=== PATIENT | female | born 1995 | race Caucasian/White ===

== ENCOUNTER 2016-10-01 03:52 | Inpatient (IN) | payer OTHER ==
[~2016-10-01] VITALS: Ht 167.6 cm; Wt 82.1 kg
[2016-10-01] MEDS ORDERED: Lactated Ringer's 1,000 ML IV PRN (04:21)
[2016-10-01] MEDS ORDERED: Methylergonovine 0.2 mg/mL Inj IM PRN ×2 (04:25→11:20)
[2016-10-01] MEDS ORDERED: Oxytocin 10 Unit/mL Inj IM PRN ×2 (04:25→11:20)
[2016-10-01] MEDS ORDERED: Sodium Chloride LOK Flush 10 mL Syringe IVFLUSH PRN (04:25)
[2016-10-01] MEDS ORDERED: Oxytocin 30 Units/500 mL LR 30 UNITS in IV Premix 1 EACH IV PRN ×2 (04:25→11:20)
[2016-10-01] MEDS ORDERED: Carboprost 250 mCg/mL Inj IM PRN ×2 (04:25→11:20)
[2016-10-01] MEDS ORDERED: Ondansetron 2 mg/mL 2 mL Inj IVPUSH PRN (04:25)
[2016-10-01] MEDS ORDERED: fentaNYL-PF 50 mCg/mL 2 mL Inj IVPUSH PRN (04:25)
[2016-10-01] MEDS ORDERED: Hemorrhage Kit, Post Partum XX ONE ×2 (04:25→11:20)
[2016-10-01 05:09] LABS: Mean Corpuscular Hemoglobin 33.2 pg (27.0-35.0); Mean Corpuscular Volume 95.6 fL (81-100)
[2016-10-01] MEDS ORDERED: PREN1TAB25 PO (06:24)
--- NOTE | 2016-10-01 09:34 | PCM.HPOB ---
Subjective Date of Service: Oct 01, 2016 Referring Provider: Admitting Physician: Mirella Nevarez MD Primary Care Physician: Derrick Pete DO Attending Physician: Mirella Nevarez MD Chief Complaint S-ROM History of Present History of Present Illness 21-year-old at 40 weeks and 3 days with a GERSON of 09/28/16 confirmed by 6 week 1 day ultrasound who presents with SROM. She states she felt a gush of fluid at 4 am. She was found to be about 1-1/2 cm dilation at [facility] and with regular contractions. She was found to have clear amniotic fluid without meconium. She has had uncomplicated however she is Rh- and will require RhoGAM. She is scheduled to have an induction of labor on 10/06/16. OB History: (1) Obstetrical Complications: None Past Medical History Obstetrical History: None Gynecologic History: None Medical History: Recurrent UTIs Depression Surgical History: Done Hx Tobacco Use: No Smoking Status: Never Smoker Hx Alcohol Use: No Hx Substance Use: No Past Family History Living Arrangement: with Family Genetic Screening/Counseling Genetic Screening/Counseling: Unknown Review of Systems Constitutional: Y: Change of appitite Eyes: Denies: Blurred Vision Cardiovascular: Denies: Chest Pain Respiratory: Denies: SOB with Exertion Gastrointestinal: Denies: Epigastric pain Psychologic: Denies: Agitation Allergy Coded Allergies: No Known Allergies (Unverified , 10/01/16) Exam Constitutional: Well-developed HEENT: Atraumatic Lungs: Clear to Auscultation Heart: Exam Unremarkable Extremities: No Edema Neurological/Psychiatric: Alert, Oriented X3, Cooperative, No Acute Distress Neuro: Normal DTRs, No Clonus noted Labs/Diagnostics Maternal Blood Type: A (negative) Group B Strep Results: Negative Previous Infant with GBS: No Rubella: Immune OB Intrapartum Assessment/Plan Problems: (1) Qualifiers: Weeks of gestation: 40 weeks Qualified Code: Z3A.40 - 40 weeks gestation of Plan: Continue routine intrapartum care Induction if not progressing within 6 hours Epidural placement by anesthesia RhoGam prior to discharge Status: Acute ICD Code: Z33.1 Attending Statement I saw patient and examined her. I agree with above plan. Elissa Ham DO Oct 01, 2016 09:34 Mirella Nevarez MD Oct 03, 2016 14:48
[2016-10-01] MEDS ORDERED: Lactated Ringer's 1,000 ML IV SCH (11:20)
[2016-10-01] MEDS ORDERED: CeFAZolin 2 Gm/50 mL D5W Duplex Bag IV ONE (11:25)
--- NOTE | 2016-10-01 13:53 | OP ---
[address] [address] OPERATIVE REPORT PATIENT: CELSO STEVENSON : 1995 MR#: [id number] ADMIT: 10/01/2016 JOB ID: [id number] DELIVERY NOTE: DATE OF DELIVERY: 10/01/2016 DELIVERING PHYSICIAN: Mirella Nevarez MD INDICATIONS: This is a 21-year-old female, 1, para 1, now she is admitted this morning for rupture of membranes, for leaking of fluid and confirmed rupture of membranes. DETAILS OF DELIVERY: After admission, patient started to have irregular contraction and contractions gradually became stronger and more regular, and during her process of labor she had a category 1 tracing. She was noticed to be fully dilated around 10 o'clock, and started to have pushing sensation. The patient had good effort to push and there was normal descent of head. The infant was delivered at an EUGENIO position. There was one round nuchal cord noticed and was not released or clamped because of the quick delivery of shoulder. Then shoulder and chest delivered without difficulty. At this time, the nuchal cord reduced and the was placed on mother's chest. There was good tone of the baby and spontaneous onset of crying. Delayed cord clamp performed after the disappearing of pulsation about 1 minute after delivery. Regular cord blood collected. The placenta delivered about 25 minutes after the delivered with gentle pulling. When examining the placenta, it was noticed in the central part of the placenta, there was a piece about 3 x 5 cm roughly was missing from placenta and discussed with the patient that examination with possible manual removal of the retained partial of placenta was needed. The patient agreed with the plan, and 100 mg of fentanyl was given before the case started. The patient tolerated the procedure well and during the examination it was noticed a small piece of placenta about 4 x 5 cm retained and still attached to the uterus. With gentle , this piece was removed and the uterine cavity was re-examined and confirmed no retained products of left. Then at this time, the uterus was manual massaged and continued with Pitocin. Hemostasis confirmed. The perineum examined with no laceration. There was a 2 cm laceration on the right vaginal wall with small oozing of blood. This was repaired with two [id number] stitches. Hemostasis confirmed after the repair. Patient tolerated the procedure well. All instrument, needles, laps and gauzes counted and correct x2. EBL during the delivery was about 400 cc. Placenta sent for pathology. DATE OF SURGERY: SURGEON: PREOPERATIVE DIAGNOSIS(ES): POSTOPERATIVE DIAGNOSIS(ES):
[2016-10-01] MEDS ORDERED: Benzocaine (Dermoplast) 20% 60 Gm Spray TOPICAL PRN (15:45)
[2016-10-01] MEDS ORDERED: Witch Hazel-Glycerin Pads TOPICAL PRN (15:45)
[2016-10-01] MEDS ORDERED: LANOlin HPA 7 Gm Ointment TOPICAL PRN (15:45)
[2016-10-02 07:49] LABS: Mean Corpuscular Hemoglobin 32.9 pg (27.0-35.0); Mean Corpuscular Volume 97.7 fL (81-100)
--- NOTE | 2016-10-02 15:05 | PCM.DIMED ---
Discharge Instructions Date of Service Oct 02, 2016 Dates of Hospitalization Oct 01, 2016 at 04:07 Diet Discharge Diet: No restrictions Activity Discharge Activity: No restrictions Call your provider Call your provider for: Fever or Chills, Shortness of breath, Bleeding, Chest pain, Vomitting, Excessive diarrhea, Weakness (unilateral) Patient Instructions Follow-up with PCP in: 6 weeks Russell Rodney MD Oct 02, 2016 15:05
[2016-10-02] MEDS ORDERED: IBUP-1827 PO (15:07)
[2016-10-02] MEDS ORDERED: DOCU-41 PO (15:07)
[2016-10-02] MEDS ORDERED: HYDR-4003 PO (15:07)
[2016-10-02 15:23] VITALS: BP 129/77; PULSE 80; RESP 16
--- NOTE | 2016-10-02 16:42 | DIS ---
[address] [address] DISCHARGE SUMMARY PATIENT: CELSO STEVENSON : 1995 MR#: [id number] ADMIT: 10/01/2016 JOB ID: [id number] DIS: 10/02/2016 ADMITTING DIAGNOSIS: A 21-year-old, 1, para zero, at 40 weeks and 3 days with spontaneous rupture of membranes. DISCHARGE DIAGNOSIS: A 21-year-old, 1, para 1, status post spontaneous vaginal delivery at term. Retained placenta, manual removal. The patient is a 21-year-old, 1, para one now, who came to Labor and Delivery at 40 weeks and 3 days with spontaneous rupture of membranes. Since her admission in the morning, contractions gradually became stronger and regular. She had category 1 tracing. Patient spontaneously progressed to full dilation at 10:00 p.m. and started pushing at around the same time. She underwent spontaneous vaginal delivery, delivered a female with weight 6 pounds and 2 ounces. Apgars 9 at one minute and 9 at five minutes. ESTIMATED BLOOD LOSS: 400 mL. The placenta was delivered with missing piece of it and manual removal of placenta was done after she received fentanyl, measuring 3 x 5 cm, was removed. Placenta was sent to Pathology. A 2 cm laceration of the right labia was repaired with two xgjpsa-[id number] 3-0 Vicryl sutures. On day one, October 02, 2016, the patient was doing well, the pain was well controlled with Motrin. She did not report any excessive pelvic pain or abnormal vaginal discharge. She was afebrile and stable. The abdomen was soft and nondistended with very mild fundal tenderness. There was no vaginal bleeding. The perineum was intact. There was no abnormal vaginal. LABS ON DISCHARGE: On day one, WBC count 12.3, hemoglobin 10.2, hematocrit 30.3, platelet count 203. The patient was sent home on day one, October 02, 2016, in stable condition with all discharge criteria met. She received discharge medications includin. Ibuprofen 600 mg p.o. q.6 h. p.r.n. for pain. 2. Colace 100 mg p.o. b.i.d. 3. Vicodin 5/325 mg p.o. t.i.d. p.r.n. for pain. Followup visit in the clinic is scheduled in six weeks.
--- NOTE | 2016-10-04 16:23 | PATH ---
SURGICAL PATHOLOGY Attending Physician:Mirella Nevarez MD CASE STATUS: Signed Out PATIENT NAME: CELSO STEVENSON PID: [id number] : 1995 DATE COLLECTED:10/01/2016 21:51 SPECIMEN: Placenta CLINICAL HISTORY: RETAINED PLACENTA 1). PLACENTA FINAL DIAGNOSIS: Placenta Designated As "Retained Placenta" Delivery: - Ross placenta ( 98% intact) with separate pieces weighing 382 grams in aggregate. - Three vessel umbilical cord with no evidence of funisitis. - membranes with no evidence of chorionitis, the amniotic membrane has been stripped precluding assessment. - Villous morphology appropriate for gestational age. ICD10: O73 GROSS DESCRIPTION: The specimen is received in formalin, labeled with the patient requisition number, and consists of a placenta which includes a 98% intact placental disc with multiple pieces of placental body (382 g in aggregate, 22.5 x 18.2 x 2.0 cm), membranes and umbilical cord (length-23.5 cm, diameter-0.9 x 0.7 cm). The membranes are ruptured at the free edge of the placenta and are semitranslucent. The umbilical cord has a furcate insertion 9.4 cm from the edge of the placenta and contains 3 vessels. The surface is smooth and shiny with no evidence of meconium identified. The maternal surface is dark maroon with normal cotyledon formation. The placental body is partially torn, ragged, and dry. The remaining body is spongy with no nodules, masses, lesions, hematomas or infarcts identified. Section code: (A) edge of placenta with membranes, umbilical cord; (B-C, D-E, F-H) placenta, 5 full-thickness sections. 10/02/16 ICD-9 CODES: CPT CODES: 1: 89361 Electronically Signed Out Manish Lopez MD [facility] [address], [place] [address] Technical component performed at [facility], [address], [place], [address]
== END 2016-10-02 17:56 | disposition home or self-care (01) | DRG 775 ==
LOC: FBCO 03:52 → FBC 04:07
PROVIDERS: ADMIT Obstetrics & Gynecology; ATTEND Obstetrics & Gynecology
PROC: 10E0XZZ Delivery of Products of Conception, External Approach (ICD-10-PCS; principal; 2016-10-01)
PROC: 0HQ9XZZ Repair Perineum Skin, External Approach (ICD-10-PCS; 2016-10-01)
DX: O70.0 First degree perineal laceration during delivery (principal); O69.81X0 Labor and delivery complicated by cord around neck, without compression, not applicable or unspecified; Z3A.40 40 weeks gestation of pregnancy; Z37.0 Single live birth

== ENCOUNTER 2016-10-18 17:28 | Emergency (ER) | payer OTHER ==
[~2016-10-18] VITALS: Ht 167.6 cm; Wt 67.0 kg
[~2016-10-18 17:28] MED LIST: DOCU-41 PO; HYDR-4003 PO; IBUP-1827 PO; PREN1TAB25 PO
[2016-10-18 17:45] VITALS: BP 102/70; PULSE 82; RESP 14; O2SAT 97
[2016-10-18 18:22] LABS: BASOPHILS % (AUTO) 0.4 % (0-3); EOSINOPHILS % (AUTO) 2.2 % (0-5); MONOCYTES % (AUTO) 9.5 % (4-12); Mean Corpuscular Hemoglobin 32.5 pg (27.0-35.0); Mean Corpuscular Volume 95.9 fL (81-100); NEUTROPHILS % (AUTO) 60.8 % (40-74); Platelet Count 261 bil/L (150-400)
--- NOTE | 2016-10-18 18:29 | ED.REPORT ---
HPI- Female Date of Service Oct 18, 2016 ED Provider: Jose DavidEd Patient is a 21 year old female status two weeks post who presents to the ED complaining of intermittent vaginal bleeding onset 1630 today. Associated symptoms include lightheadedness. Patient also complains of a headache since her delivery and decreased appetite. She denies nausea, abdominal pain, pelvic pain or foul vaginal discharge. The patient reports that it started with intermittent pink vaginal bleeding until 1630 when she passed two large clots. She states that during her child she had some retained placenta that was removed after delivery. Nursing Notes Stated Complaint: BLEEDING Chief Complaint: Female Abdominal Pain Nursing Notes Reviewed: Yes Allergies: Coded Allergies: No Known Allergies (Unverified , 10/18/16) Scheduled Docusate Sodium (Colace) 100 Mg Capsule 100 MG PO BID Vit#96/Ferrous Fum/FA ( Tablet) 1 Each Tablet 1 EACH PO DAILY Scheduled PRN Hydrocodone-Acetaminophen 5-325 mg (Hydrocodone-Acetaminophen 5-325 mg) 1 Each Tablet 1 TABLET PO QID PRN PRN For Pain Ibuprofen (Ibuprofen) 600 Mg Tablet 600 MG PO Q6H PRN PRN For Mild Pain General Time Seen by MD: 18:29 Chief Complaint Vaginal bleeding... Hx Obtained From: Patient Arrived By: Walk-in Sudden in Onset?: Yes Onset Occurred: 1 - 4 hours ago Symptom Duration: Since onset Severity: Current: No pain currently Recent Healthcare: Recent hospitalization Similar Sx Previous: No Past Medical History Past Medical History 2 weeks post Smoking History Never Smoker Ambulatory Status Independent Review of Systems Review of Systems Note: +decreased appetite Constitutional: Denies: Chills, Fever GI: Denies: Abdominal pain, Nausea Female: Reports: Vaginal bleeding - abnl, Denies: Pelvic pain, , Vaginal discharge Skin: Denies Itching, Denies Rash Neurologic: Reports: Headache Complete sys rev & neg: except as marked. Respiratory: Denies: Non-productive cough, Shortness of breath Physical Exam Initial Vital Signs Vital Signs (First) Date Time Temp Pulse Resp B/P Pulse Ox O2 Delivery O2 Flow Rate FiO2 10/18/16 17:45 36.8 82 14 102/70 97 10/18/16 19:20 Room Air Initial VS: Reviewed Female Genitourinary: Dike Supervisor present, Atraumatic, External genitalia NL, No cervical motion tend cervix closed scant brownish blood present no active bleeding, no bright red blood no foul smelling lochia General/Constitutional: Awake, Alert Respiratory / Chest: Atraumatic, Breath sounds NL, Breath sounds = bilat, No respiratory distress Cardiovascular: Heart rate NL, Regular rhythm, Heart sounds NL, No gallop, No murmurs, No rubs Abdomen: Atraumatic, Soft, Non-tender, No distention, No palpable mass Skin: Atraumatic, Color NL, No rash, Warm, Dry well profused Head / Eyes: Atraumatic, Normocephalic, PERRL, EOMI Neurologic: Oriented X3, Speech NL Psychiatric: Affect NL, Mood NL Interpretation & Diagnostics Lab Results Interpretation Result Diagram: 10/18/16 1805 Test 10/18/16 18:05 White Blood Count 7.2th/mm3 (3.8-10.1) Red Blood Count 3.94mil/mm3 (3.90-5.20) Hemoglobin 12.8g/dL (12.0-15.6) Hematocrit 37.8% (35.0-46.0) Mean Corpuscular Volume 95.9fL (81-100) Mean Corpuscular Hemoglobin 32.5pg (27.0-35.0) Mean Corpuscular Hemoglobin Concent 33.9% (32.0-37.0) Red Cell Distribution Width 11.2% (12.3-15.4) Platelet Count 261bil/L (150-400) Neutrophils (%) (Auto) 60.8% (40-74) Lymphocytes (%) (Auto) 27.0% (14-46) Monocytes (%) (Auto) 9.5% (4-12) Eosinophils (%) (Auto) 2.2% (0-5) Basophils (%) (Auto) 0.4% (0-3) Re-Eval/Medical Decision Med Decision/Clinical Course Patient is a 21 year old female status two weeks post who presents to the ED complaining of intermittent vaginal bleeding onset 1629 today. Associated symptoms include lightheadedness. Patient also complains of a headache since her delivery and decreased appetite. She denies nausea, abdominal pain, pelvic pain or foul vaginal discharge. The patient reports that it started with intermittent pink vaginal bleeding until 1630 when she passed two large clots. She states that during her child she had some retained placenta that was removed after delivery. Here in the emergency department the patient is afebrile with benign abdominal examination and stable vital signs. Pelvic examination reveals scant dark/old appearing blood and a closed cervix. There is no active bleeding present. Labs: CBC unremarkable, no leukocytosis Hematocrit 37.8 No foul-smelling lochia, fevers, abdominal pain or findings suggestive of endometritis. No ongoing bleeding or passage of clot suggestive of retained placenta. Patient reports that she did have some retained placenta that was removed post . She passed a couple large clots today those had no ongoing bleeding. I do not feel that imaging studies are immediately indicated. I suspect that she is simply passing some retained clot and in the absence of any ongoing bleeding or other concerning symptoms I do not feel that this requires further intervention. She is hemodynamically stable with stable hemoglobin and hematocrit and I am reassured by this. She will call her [employer] to arrange for follow-up. She will return right away for any pain, fevers, foul discharge or worsening/increasing bleeding. Prior to discharge follow-up and return precautions were reviewed in detail with the patient who verbalized understanding and agreement with the plan. The patient was discharged in stable condition. Re-Evaluation/Progress : Time of Eval: 19:04 Re-Evaluation/Progress Note: Discussed results and plan for discharge. Patient understands and agrees to plan. All questions were addressed. Counseled Regarding: Diagnosis, Lab results, Need for follow-up, When/why to return to ED Discharge & Departure Impression: Primary Impression: Vaginal bleeding Additional Impression: bleeding hemorrhage type: unspecified Qualified Code: O72.1 - Other immediate hemorrhage Disposition: Home Discharge Condition All VS Reviewed: Yes Condition: Stable Additional Instructions: Thank you for seeking care at the emergency room. It is difficult for us to make definitive diagnoses in the ED but we believe that you are experiencing vaginal bleeding Our primary goal today in the Emergency Department was to evaluate you for any life-threatening conditions. Your evaluation was reassuring. You should follow-up with your primary doctor in the next week. You should return to the Emergency Department immediately if you develop fevers , increasing pain, vaginal bleeding that lasts longer than 3 weeks, if you feel faint, bleeding through more than a pad an hour, or any other concerning signs or symptoms. Thank you for letting us partake in your care today. Referrals: Mirella Nevarez MD (PCP) Scribe Attestation Portions of this note were transcribed by Jennifer Kurtz. I, Dr. Nj personally performed the history, physical exam and medical decision-making; I reviewed and confirmed the accuracy of the information in the transcribed note. Signed by: Dominic Orellana, 10/18/16 copies to: Mirella Nevarez MD, Beck O MD Oct 18, 2016 18:29 Kathrin Kurtz Oct 18, 2016 18:38
[2016-10-18 19:20] VITALS: BP 102/62; PULSE 76; RESP 22; O2SAT 95
== END 2016-10-18 19:20 | disposition home or self-care (01) ==
LOC: SED 17:28
DX: O72.2 Delayed and secondary postpartum hemorrhage (principal)

== ENCOUNTER → 2016-11-02 | Day surgery (SDC) | payer OTHER ==
[~2016-11-02] VITALS: Ht 167.6 cm; Wt 72.0 kg
[2016-11-02] VITALS (7 sets, daily range): BP systolic 101–113; BP diastolic 54–64; PULSE 47–69; RESP 8–20; O2SAT 97–100
[~2016-11-02] MED LIST changes: +Dexamethasone 4 mg/mL Inj IVPUSH PRN; +Dexamethasone 4 mg/mL Inj ONE; +EPHEDrine Sulfate 50 mg/mL Inj IVPUSH PRN; -HYDR-4003 PO; +HYDROmorphone 1 mg/mL Inj IVPUSH PRN; +Lactated Ringer's 1,000 ML IV ONE; +Lactated Ringer's 1,000 ML IV SCH; +Lactated Ringer's 500 ML IV PRN; +MetoCLOpramide 5 mg/mL 2 mL Inj IVPUSH PRN; +Ondansetron 2 mg/mL 2 mL Inj IVPUSH PRN; +Ondansetron 2 mg/mL 2 mL Inj ONE; -PREN1TAB25 PO; +Phenylephrine 10,000 mCg/mL Inj IVPUSH PRN; +Propofol 10,000 mCg/mL 20 mL Inj ONE; +[UNRECOGNIZED DRUG - CODE] PO; +fentaNYL-PF 50 mCg/mL 2 mL Inj IVPUSH PRN; +fentaNYL-PF 50 mCg/mL 2 mL Inj ONE; +oxyCODONE-Acetamin 5-325 mg Tablet PO PRN
--- NOTE | 2016-11-02 12:29 | PCM.HPANE ---
Patient Data Date of Service: Nov 02, 2016 (1100) Surgeon Admitting Provider: Attending Provider:Mirella Nevarez MD Primary Care Physician:Mirella Nevarez MD Other Provider:Joshua Balderas Anesthesia Reason for Visit Retained Products Of Conception Ht/WT & BMI Height (Feet): 5 Height (Inches): 6.00 Weight (Kilograms): 72.030 Body Mass Index 25.00 Allergies Coded Allergies: No Known Allergies (Unverified , 11/01/16) Past Anesthesia History Anesthesia History: Denies:: Abnormal Airway, Anesthesia Reactions, Difficult Intubation, Fam Anesthesia Reaction, Fam Malignant Hypertherm, Malignant Hyperthermia Diabetes History Hx Diabetes?: No MRSA MRSA: No Medications Hypertension Medication: No Home Meds Incl Beta Kalee: No Reported Medications Ibuprofen 600 Mg [id number] Mg PO BID PRN For Pain Ref 0 11/01/16 Docusate Sodium (Colace)100 Mg [id number] Mg PO BID PRN For Constipation Ref 0 11/01/16 Prenatl Vit6/Iron/FA/B12/Ca/D3 (Mteryti Combo Pack)35MG-1.1MG Tablet.seq1 Each PO 11/01/16 Discontinued Reported Medications Vit W-Ca,Fe,FA(<1 mg) ( Vitamins)1 Each Tablet1 Each PO DAILY 11/01/16 Vit #91/Fe Fum/FA/Dha ( + Dha Combo Pack)1 Each Combo..pkg1 Each PO 11/01/16 Vit#96/Ferrous Fum/FA ( Tablet)1 Each Tablet1 Each PO DAILY 10/01/16 Discontinued Scripts Hydrocodone-Acetaminophen 5-325 mg 1 Each Tablet1 Tablet PO QID PRN For Pain # 30 TABLET Ref 0 Prov:Russell Rodney MD 10/02/16 Docusate Sodium (Colace)100 Mg [id number] Mg PO BID #60 CAPSULE Prov:Russell Rodney MD 10/02/16 Ibuprofen 600 Mg [id number] Mg PO Q6H PRN For Mild Pain #60 TABLET Prov:Russell Rodney MD 10/02/16 History History of ENT Problems?: No HEENT History: Denies:: Abnormal Airway Cataracts Difficult Intubation Dysphagia Glaucoma Hearing Problem Sinus Problem TMJ Denture Type: None Teeth Condition: Within Normal Limits Hx of Heart Problems?: No Cardiovascular History: Denies:: AICD Edema Heart Murmur Hypertension Irregular Heartbeat Pacemaker Peripheral Vascular Hx of Respiratory Problem?: No Respiratory History: Denies:: Asthma COPD Emphysema Hemoptysis Oxygen Administration Pneumonia (possible hx as child) Tuberculosis Use of C-PAP Machine Hx Neurologic Problems?: No Neurological History: Denies:: Alzheimer's Disease CVA Dementia Dizziness Headaches Multiple Sclerosis Parkinson's Disease Seizures TIA Hx of GI Problems?: No Hx of Problems?: No Genitourinary History: Denies:: Kidney Stones Urinary Tract Infection Female Hx: Denies:: Currently Problems with Breasts? Skin History: Denies:: History Skin Disorders? Pressure Ulcers Hx Musculoskeletal Problems?: No Musculoskeletal History: Denies:: Back Injury Degenerative Joint Fibromyalgia Joint Replacement Musculoskeletal Trauma Myasthenia Gravis Osteoarthritis Rheumatoid Arthritis Systemic Lupus Hx of Psycho/Social Problems?: No Psycho Social History: Denies:: Anxiety Hx Depression Hx Surgeries?: Yes (fx arm as child) Hx Any Other Health Problems?: Yes Other History: Positive for:: Hospitalization (child ) Denies:: Cancer Thyroid Disease History Blood Transfusions: Positive for:: Accept Blood Products? Denies:: Blood Transfusions Hx Diabetes: No Hx Alcohol Use: NoHx Substance Use: No Smoking Status: Never Smoker Have You Smoked inLast 12 mo: No Stop/Bang S-Snoring: Do You Snore Loudly: No T-Tired: feel tired, fatigued: No O-Obsered: Observed not breath: No P-Blood Pressure: treated: No B- Body Mass Index > 35 kg/m2: No A- Age over 50: No N- Neck Large Circumference: No G- Gender Male: No YANELI Total Score: 0 YANELI Risk Assessment: Low Risk, <3 Yes Risk Assessment Category Category 1A: Patient has history of documented sleep apnea, and HAS NOT received any narcotic, sedative or anesthesia administration during this stay. Category 1B: Patient has history of documented sleep apnea, and HAS received any narcotic , sedative or anesthesia administration during this stay Category 2: Patient has SUSPECTED Obstructive Sleep Apnea, and HAS received any narcotic , sedative or anesthesia administration during this stay. Category 3: Patient has SUSPECTED Obstructive Sleep Apnea and HAS NOT received narcotic, sedative or anesthesia administration during this stay. Category 4: Outpatient in Procedural Areas with known sleep apnea or who screen positive for High Risk via the STOP/BANG questionnaire. Exam Exam Vital Signs Vital Signs Date Time Temp Pulse Resp B/P Pulse Ox O2 Delivery O2 Flow Rate FiO2 11/02/16 11:17 36.6 56 14 110/58 98 Room Air General Appearance: Alert, Oriented X3 HEENT/AIRWAY: MP 1 Lungs: Clear to Auscultation Heart: Exam Unremarkable Meds/Labs/Diagnostics Admission Meds Current Medications Lactated Ringer's (Lr) 1,000 ml @ ud STK-MED ONCE IV Last administered on 11/02t 11:24; Start 11/02/16 at 11:24; Stop 11/02/16 at 11:25; Status DC Plan Impression Patient chart reviewed, patient interviewed and anesthestic plan with risks, benefits, and alternatives discussed, and informed consent obtained. NPO per Anesth. Guidelines: Yes ASA Physical Status: ASA1 Normal Healthy Anesthetic Plan: GA Bene/Risks/Altern/Consents: Yes HP Complete Prior to Induction: Yes Edwar Escudero MD Nov 02, 2016 12:29
--- NOTE | 2016-11-02 13:27 | PCM.ANEP1 ---
Post Anesthesia PACU Phase 1 Assessment Vital Signs 113/54, 66, 16, 100%, 36.6 Vital Signs Date Time Temp Pulse Resp B/P Pulse Ox O2 Delivery O2 Flow Rate FiO2 11/02/16 11:17 36.6 56 14 110/58 98 Room Air Anesthetic Administered: GA Level of Alertness: Awake, talking MCKEE's with Equal Strength: Yes Pain: No Nausea or Vomiting: No CV Function & Hydration Stable: Yes Airway Device: none Lungs: Clear to Auscultation Dermatome Level: Full Sensation Summary uneventful GA PACU Phase 2 Assessment Complications: No Follow up Care: No Patient Instructions Provided: N/A Edwar Escudero MD Nov 02, 2016 13:27
--- NOTE | 2016-11-02 13:30 | PCM.DIGYN ---
Surgical Discharge Instruction Dates of Hospitalization Date of Hospital Admission Providers Admitting Physician: Primary Care Physician: Mirella Nevarez MD Attending Physician: Mirella Nevarez MD Diagnosis at Time of Discharge Diagnosis at time of discharge bleeding retained product of Post-operative diagnosis bleeding retained product of Problems: Diet Discharge Diet: No restrictions Activity Discharge Activity-General: Try not to overdue, Be up and about, Balance rest and activity, No driving while taking narcotic Dressing and Incisional Care Hygiene: May shower, NO bathtub, hot tub or whirlpool Additional Instructions Discharge Instructions Please call office or go to ER if heavy vaginal bleeding, severe abdominal pain , foul smelling discharge, fever more than 100.4 or short of breath Follow Up Plan Follow Up Plan 2 week after procedure Follow-up Provider (F9): Mirella Nevarez MD Follow-up appointment: Weeks (2) Call your provider for: Fever, Chills, Shortness of breath, Vomitting, Heavy vaginal bleeding, Increasing pain Mirella Nevarez MD Nov 02, 2016 13:30
--- NOTE | 2016-11-02 15:40 | DIS ---
[address] [address] DISCHARGE SUMMARY PATIENT: CELSO STEVENSON : 1995 MR#: [id number] ADMIT: 11/02/2016 JOB ID: [id number] DIS: 11/02/2016 HOSPITAL COURSE: This is a 21-year-old female, 1, para 1, status post vaginal delivery four weeks ago with heavy bleeding. She came in today for a planned suction D and C. The procedure itself was not complicated. The patient was transferred to recovery room in stable condition. PLAN: To discharge patient home when she is able to void, ambulate, and pain is well controlled. Patient is instructed that if there is heavy vaginal bleeding, severe abdominal pain, foul-smelling discharge, fever more than 100.4, she should call office or go to the emergency department for evaluation. She is instructed to follow up in two weeks after the procedure. No sex at this time before she goes back for followup. Percocet 5/325, 10 pills, Motrin 600 mg 30 pills prescribed for pain.
--- NOTE | 2016-11-02 15:43 | OP ---
[address] [address] OPERATIVE REPORT PATIENT: CELSO STEVENSON : 1995 MR#: [id number] ADMIT: 11/02/2016 JOB ID: [id number] DATE OF SURGERY: 11/02/2016 SURGEON: Mirella Nevarez MD. PROCEDURE: Suction dilatation and curettage. PREOPERATIVE DIAGNOSIS(ES): A 21-year-old female, 1, para 1, at four weeks after vaginal delivery, heavy vaginal bleeding, on and off. Possible retained placenta. POSTOPERATIVE DIAGNOSIS(ES): A 21-year-old female, 1, para 1, at four weeks after vaginal delivery, heavy vaginal bleeding, on and off. Possible retained placenta. INDICATION OF THE PROCEDURE: As stated above. This is a 21-year-old female. She is 1, para one. She had a vaginal delivery four weeks ago which was complicated by manual placenta removal. At that time, the placenta was tightly adherent to the uterine cavity but feels complete removal of the placenta. The patient had no heavy vaginal bleeding for the first two weeks, and then she started to have on-and-off heavy bleeding. She called the office on October 20 and an ultrasound was performed and showed a 2 cm area of hypoechogenic area with vasculature of suspected retained placenta. Planned for suction D and C. At that time, she had no more bleeding so she canceled her procedure, but then bleeding restarted. She called the office and procedure was rescheduled today. I discussed with the patient about the possible reasons of heavy bleeding after vaginal delivery. Retained placenta is the most common reason and the ultrasound also suspected retained placenta and suction D and C is indicated. But there are other possible reasons causing bleeding. The patient understood and also discussed with patient that the risk of suction D and C, including infection, bleeding, perforation of the uterus, injury to the organs around the uterus including but not limited to the bladder, ureters, major vessels, nerves, and bowels. Informed consent signed. The patient get p.o. dicyclomine before procedure. The patient had no fever, no abdominal pain, and her white count, October 20, shows no signs of infection. The patient was transferred to operating room after anesthesia was noted to be adequate. She was placed in dorsal lithotomy position. She was prepared and draped in normal sterile fashion. The patient voided before procedure. Speculum inserted to vagina to expose the cervix. The cervix was grasped by a single-tooth tenaculum. The cervix was easily dilated to #9-Azeri and gentle sounding was performed to 9 cm. A #8 suction tube was used. A moderate amount of tissue was removed, and then at this time, sharp curettage was performed. More tissue was removed by sharp curettage, mostly on the posterior fundal uterine wall. Those tissues are relatively tightly connected to the uterine wall, but with gentle sharp curettage they all could be removed, and then the uterine cavity was suctioned one more time to remove the remnant of the tissue . All instruments cleared from the field. Hemostasis confirmed. The EBL during the procedure was about 50 cc. The patient tolerated the procedure well. She was transferred to recovery room in a stable condition.
--- NOTE | 2016-11-05 11:34 | PATH ---
SURGICAL PATHOLOGY Attending Physician:Mirella Nevarez MD CASE STATUS: Signed Out PATIENT NAME: CELSO STEVENSON PID: [id number] : 1995 DATE COLLECTED:11/02/2016 00:00 SPECIMEN: Products of conception CLINICAL HISTORY: RETAINED PRODUCTS OF CONCEPTION 1). RETAINED PRODUCTS OF CONCEPTION FINAL DIAGNOSIS: Retained Products of Conception, Curettage: Chorionic villi present. ICD10: O72.2 GROSS DESCRIPTION: Received one formalin-filled container labeled with the patient' s name, labeled "products of conception", are multiple portions of tissue and clotted blood which aggregate to 5.0 x 3.0 x 1.0 cm. No grossly recognizable parts are observed. The specimen is entirely submitted in six cassettes. ([id number]) ICD-9 CODES: CPT CODES: 1: 50544 Electronically Signed Out Franki Cortez MD, Ph.D. [facility] [address], [place] [address] Technical component performed at [facility], [address] [place] [address] Ave[address], [place], [address]
== END | disposition home or self-care (01) ==
LOC: SAS 10:53
PROVIDERS: ATTEND Obstetrics & Gynecology
DX: O72.0 Third-stage hemorrhage (principal); N91.2 Amenorrhea, unspecified
CPT/HCPCS: 59160; J1100; J1885; J2175; J2250; J2405; J2704; J3010; J7120